=== PATIENT | male | born 2000 | race Two or more races ===

== ENCOUNTER 2023-01-18 01:26 | Emergency (ER) | payer OTHER ==
[~2023-01-18] VITALS: Ht 188 cm; Wt 133.4 kg
[2023-01-18] MEDS ORDERED: MORPHINE SULFATE INJ 4 MG/ML DISP.SYRIN ONE ×2 (01:36→02:07)
[2023-01-18] MEDS ORDERED: ONDANSETRON HCL/PF 4 MG/2 ML VIAL ONE ×2 (01:36→02:07)
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
--- NOTE | 2023-01-18 01:40 | NUR ---
WITH LAC ON RIGHT ELBOW APPROX 5CM
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
[2023-01-18] MEDS ORDERED: IOHEXOL-300 100 ML VIAL IV ONE (01:48)
[2023-01-18] MEDS ORDERED: IV NS 0.9% 250 ML IV ONE (01:48)
[2023-01-18] MEDS ORDERED: ONDANSETRON HCL/PF 4 MG/2 ML VIAL IV ONE (02:00)
[2023-01-18] MEDS ORDERED: IV NS 0.9% 500 ML BAG IV ONE (02:00)
[2023-01-18] MEDS ORDERED: MORPHINE SULFATE INJ 10 MG/ML DISP.SYRIN IV ONE (02:00)
--- NOTE | 2023-01-18 02:01 | NUR ---
Patient taken to CT, speaking with his mother on cell phone gving her update. Patient states he wants to keep his moher updated. CT Scan completed.
--- NOTE | 2023-01-18 02:10 | NUR ---
PT RETURNED FROM CT
--- NOTE | 2023-01-18 02:15 | NUR ---
PHLEBOTOMY AT BEDSIDE
[2023-01-18] MEDS ORDERED: LIDOCAINE 2%-EPI 1:100,000 30 ML VIAL ONE (02:24)
[2023-01-18 02:25] LABS: BASOPHILS % (AUTO) 0.2 % (0.0-2.0); EOSINOPHILS % (AUTO) 0.9 % (0.0-6.0); HEMATOCRIT 43 % (39-51); HEMOGLOBIN 14.1 g/dL (13.5-17.5); LYMPHOCYTES # (AUTO) 1.4 K/uL (0.8-4.8); LYMPHOCYTES % (AUTO) 14.7 % (20.0-44.0); MEAN CORPUSCULAR HGB CONC 33 g/dl (31.0-36.0); MEAN CORPUSCULAR VOLUME 91 fL (80-96); MONOCYTES # (AUTO) 0.6 K/uL (0.1-1.30); MONOCYTES % (AUTO) 6.6 % (2.0-12.0); NEUTROPHILS # (AUTO) 7.2 K/uL (1.8-8.9); NEUTROPHILS % (AUTO) 77.6 % (43.0-81.0); PLATELET COUNT (AUTO) 298 K/uL (150-450); RED BLOOD CELL COUNT(AUTO) 4.73 MIL/uL (4.5-6.0); WHITE BLOOD COUNT (AUTO) 9.3 K/uL (4.3-11.0)
[2023-01-18 02:35] LABS: CALCIUM, SERUM 8.1 mg/dL (8.5-10.1); CREATININE 0.9 mg/dL (0.6-1.3); POTASSIUM 3.6 mmol/L (3.5-5.1)
[2023-01-18 02:41] LABS: ALBUMIN 3.9 g/dL (3.4-5.0); BILIRUBIN,DIRECT 0.1 mg/dL (0.0-0.2); BILIRUBIN,TOTAL 0.4 mg/dL (0.2-1.0); TOTAL PROTEIN, SERUM 7.4 g/dL (6.4-8.2)
--- NOTE | 2023-01-18 03:05 | NUR ---
AT BEDSIDE FOR LAC REPAIRS
[2023-01-18] MEDS ORDERED: CEPHALEXIN MONOHYDRATE 500 MG CAPSULE PO ONE ×2 (03:54→04:00)
[2023-01-18] MEDS ORDERED: CEPH500T PO (03:56)
[2023-01-18 04:18] VITALS: BP 120/74
--- NOTE | 2023-01-18 04:18 | NUR ---
Patient discharged to home in stable condition. Written and verbal after care instructions given. Patient verbalizes understanding of instruction. IV removed. Catheter intact and site benign. Pressure and 4x4 applied to site. No bleeding noted.
== END 2023-01-18 04:18 | disposition home or self-care (01) ==
LOC: ER 01:28
DX: S21.111A Laceration without foreign body of right front wall of thorax without penetration into thoracic cavity, initial encounter (principal); S41.111A Laceration without foreign body of right upper arm, initial encounter; F17.200 Nicotine dependence, unspecified, uncomplicated; Z79.899 Other long term (current) drug therapy; W45.8XXA Other foreign body or object entering through skin, initial encounter; Y93.89 Activity, other specified; Y92.89 Other specified places as the place of occurrence of the external cause; Y99.8 Other external cause status
CPT/HCPCS: 99291; 96374; 71260; 71045; 96375; 12004; 85025; 80048; 80076; 36415; 85730; 86850; J2270 ×3; J2405 ×2; J7050; J7040; J3490; Q9967

== ENCOUNTER 2023-01-27 17:49 | Emergency (ER) | payer BC, OTHER ==
[~2023-01-27] VITALS: Ht 188 cm; Wt 127.0 kg
[~2023-01-27 17:49] MED LIST: CEPH500T PO
[2023-01-27 18:00] VITALS: BP 139/66
--- NOTE | 2023-01-27 18:00 | NUR ---
bib self for suture removal, lac repaired done 01/18/23.
[2023-01-27] MEDS ORDERED: CEPH500C2 PO (18:20)
--- NOTE | 2023-01-27 18:29 | NUR ---
Patient discharged to home in stable condition. Written and verbal after care instructions given. Patient verbalizes understanding of instruction.
== END 2023-01-27 18:30 | disposition home or self-care (01) ==
LOC: ER 17:55
DX: Z48.02 Encounter for removal of sutures (principal); F17.200 Nicotine dependence, unspecified, uncomplicated